=== PATIENT | male | born 1990 | race Caucasian/White ===

== ENCOUNTER 2018-12-31 07:21 | Inpatient (IN) | payer MEDICAID ==
[~2018-12-31] VITALS: Ht 165.1 cm; Wt 89.4 kg
--- NOTE | 2018-12-31 07:25 | NUR ---
TO ED 03 WITH STEADY GAIT.
[2018-12-31 07:29] VITALS: BP 151/92
--- NOTE | 2018-12-31 07:35 | NUR ---
PATIENT PRESENTS TO ED WITH C/O MANNY. BELOW CHEST PAIN X1 MONTH. PAIN LEVEL 8/10 CONSTANT, PT STATES HE WAS TX OF GERD A YEAR AGO AT [facility] WITH THE SAME SYMPTOMS. HX: ASTHMA . STATED NAUSEA AND SOB. VSS; PATIENT POSITIONED FOR COMFORT; HOB ELEVATED; BEDRAILS UP X2; BED DOWN. ER MD MADE AWARE OF PT STATUS.
--- NOTE | 2018-12-31 07:38 | NUR ---
Dr. Strange is evaluating the patient at bedside.
[2018-12-31] MEDS ORDERED: FAMOTIDINE 20 MG TAB PO ONE (07:45)
[2018-12-31] MEDS ORDERED: ONDANSETRON 4 MG ODT PO ONE (07:45)
[2018-12-31 08:23] LABS: ANION GAP 13.2 (8-16); BASOPHILS % (AUTO) 0.4 % (0.0-2.0); CARBON DIOXIDE 28.9 mmol/L (21-32); EOSINOPHILS # (AUTO) 0.1 K/uL (0-0.4); EOSINOPHILS % (AUTO) 0.9 % (0.0-4.0); HEMATOCRIT 45.8 % (36-52); HEMOGLOBIN 15.6 g/dL (12.0-18.0); LYMPHOCYTES % (AUTO) 11.2 % (20.5-51.1); MEAN CORPUSCULAR HEMOGLOBIN 30 pg (27-31); MEAN CORPUSCULAR HGB CONC 34 g/dL (33-37); MONOCYTES # (AUTO) 0.7 K/uL (0.8-1.0); MONOCYTES % (AUTO) 7.6 % (1.7-9.3); NEUTROPHILS # (AUTO) 7.4 K/uL (1.8-7.7); NEUTROPHILS % (AUTO) 79.9 % (42.2-75.2); PLATELET COUNT (AUTO) 285 K/uL (140-450); POTASSIUM 5.1 mmol/L (3.5-5.1); RED BLOOD CELL COUNT(AUTO) 5.21 MIL/uL (4.20-6.10); RED CELL DISTRIBUTION WIDTH 12.4 % (11.6-13.7); WHITE BLOOD COUNT (AUTO) 9.2 K/uL (4.8-10.8)
[2018-12-31 08:31] LABS: ALBUMIN 4.1 g/dL (3.4-5.0); TOTAL BILIRUBIN 6.3 mg/dL (0.0-1.0)
--- NOTE | 2018-12-31 08:50 | NUR ---
PT STILL C/O PAIN, NO RELEFE AFTER MEDICATED, ER MD MADE AWARE
[2018-12-31] MEDS ORDERED: MORPHINE SULFATE 4 MG/ML SYR IVP ONE (08:55)
[2018-12-31 08:58] LABS: APPEARANCE,URINE CLEAR (CLEAR); BILIRUBIN,URINE 1+ (NEGATIVE); BLOOD, URINE TRACE-I (NEGATIVE); COLOR,URINE YELLOW (YELLOW); LEUKOCYTE ESTERASE ,URINE NEGATIVE (NEGATIVE); NITRITE, URINE NEGATIVE (NEGATIVE); UGLUCOSE NEGATIVE (NEGATIVE)
--- NOTE | 2018-12-31 09:27 | NUR ---
IV INSERTED TO RIGHT AC 22GA BY STUDENT WITH INSTRUCTORS, PT TOLERATED WELL. IV MORPHINE GIVEN, WILL CLOSE MONITOR FOR SIDE EFFECTS AT THIS TIME.
--- NOTE | 2018-12-31 09:30 | NUR ---
PT STATED NO PAIN AT THIS TIME, VSS, NO S/S OF DISTRESS.
[2018-12-31 09:31] LABS: RBC,URINE 0-5 /HPF (0-5); WBC,URINE 0-5 /HPF (0-5)
[2018-12-31] MEDS ORDERED: DOCUSATE SODIUM 100 MG GELCAP PO PRN (09:45)
[2018-12-31] MEDS ORDERED: ACETAMINOPHEN 325 MG TAB PO PRN (09:45)
[2018-12-31] MEDS ORDERED: ONDANSETRON 4 MG/2 ML VIAL IM/IVP PRN (09:45)
--- NOTE | 2018-12-31 09:45 | NUR ---
Pt transferred to Med/Surg via WHEELCHAIR ROOM 105A, ALL BELONGINGS GOES WITH PATIENT, REPORT GIVEN TO JESUS AT BEDSIDE, PT IS IN STABLE CONDITION AT THIS TIME .
[2018-12-31 09:50] VITALS: BP 139/92
--- NOTE | 2018-12-31 09:55 | NUR ---
RECEIVED PT FROM ED NURSE UVALDO, PT IS AWAKE AND ALERT, AMBULATORY, ON ROOM AIR, SKIN INTACT. NO C/O PAIN AT THIS TIME. IV SITE R AC 22 G.
[2018-12-31 10:01] LABS: PROTHROMBIN TIME 9.3 secs (10.8-13.4)
[2018-12-31 10:03] LABS: BENZODIAZEPINE, URINE NEGATIVE ng/mL (NEG <=200); CANNABINOID, URINE NEGATIVE ng/mL (NEG <=50); COCAINE, URINE NEGATIVE ng/mL (NEG <=300); OPIATE, URINE NEGATIVE ng/mL (NEG <=2000); PHENCYCLIDINE SCREEN,URINE NEGATIVE ng/mL (NEG <=25)
[2018-12-31 10:05] LABS: MAGNESIUM 1.9 mg/dL (1.8-2.4); PHOSPHORUS 2.8 mg/dL (2.5-4.9)
[2018-12-31 10:06] LABS: THYROID STIMULATING HORMONE 1.54 uIU/mL (0.34-3.74)
--- NOTE | 2018-12-31 10:10 | NUR ---
VITAL SIGNS UPON ADMIT: BP 136/92, HR 77, O2 98%, TEMP 99.3, RR 20.
--- NOTE | 2018-12-31 10:34 | NUR ---
PT SEEN BY DR NEWTON
[2018-12-31] MEDS: NACL 0.9% 1,000 ML IV SCH ×2 (10:44→20:51)
[2018-12-31] MEDS: HYDROcodone/APAP 7.5/325 MG 1 TAB PO PRN ×3 (11:47→20:44)
--- NOTE | 2018-12-31 13:57 | NUR ---
PT VISITING WITH HIS MOM, NO S/S OF ACUTE DISTRESS.
--- NOTE | 2018-12-31 14:05 | NUR ---
PT SEEN BY DR DENNIS
--- NOTE | 2018-12-31 14:14 | NUR ---
CONSENT OBTAINED FOR CHOLECYSTECTOMY TOMORROW W/ DR DENNIS
[2018-12-31 16:00] VITALS: BP 136/80
--- NOTE | 2018-12-31 18:45 | NUR ---
PT SEEN BY DR ENRIQUEZ REGARDING DOING AN ERCP. CONSENT OBTAINED FOR ERCP FOR TOMORROW.
--- NOTE | 2018-12-31 19:20 | NUR ---
ENDORSED PT TO ELECTRICAL LINESWORKER NURSE IN STABLE CONDITION.
--- NOTE | 2018-12-31 19:30 | NUR ---
SEEN PT AWAKE, ALERT AND ORIENTED APPEARS COMFORTABLE IN BED. FAMILY AT BEDSIDE.
--- NOTE | 2018-12-31 20:30 | NUR ---
SEEN PT AWAKE, ALERT AND ORIENTED IN BED THEN SAT AT THE EDGE OF THE BED. INITIAL ASSESSMENT DONE. VITAL SIGN CHECKED. PT COMPLAINING OF EPIGASTRIC PAIN. WILL MEDICATE FOR PAIN ORDERED. PT SAID HIS LAST BM WAS SATURDAY AND HE DIDN'T EAT YESTERDAY. SAFETY ENSURED. CALL LIGHT W/IN REACH.
[2018-12-31 20:39] VITALS: BP 136/91
--- NOTE | 2018-12-31 22:50 | NUR ---
SEEN PT AWAKE, IN BED. VISITOR AT BEDSIDE. PT COMPLAINING OF EPIGASTRIC PAIN AND WANTS SOMETHING STRONGER. WILL NOTIFY MD. IVF INFUSING WELL.
--- NOTE | 2018-12-31 23:00 | NUR ---
INFORMED MD ABOUT PT'S PAIN LEVEL. HE SAID HE'LL ASSESS PATIENT AND SEE WHAT HE CAN ORDER FOR THE PAIN, MAYBE ULTRAM OR TRAMADOL BUT HE'LL CHECK THE CREATININE LEVEL FIRST. WILL TELL PATIENT.
[2018-12-31] MEDS ORDERED: KETOROLAC 30 MG/ML VIAL IVP PRN (23:45)
--- NOTE | 2018-12-31 23:45 | NUR ---
SEEN PT COMING OUT OF THE BATHROOM. ASKED IF MD CAME BY TO SEE HIM. HE SAID "NO". WILL REMIND MD.
--- NOTE | 2019-01-01 00:45 | NUR ---
SEEN PT AWAKE, ALERT AND ORIENTED. PT GIVEN PAIN MEDICATION AND SLEEPING PILL ORDERED. TEACHINGS PROVIDED. WILL REASSESS PAIN LEVEL.
[2019-01-01] MEDS: ZOLPIDEM 10 MG TAB PO PRN ×2 (00:50→22:02)
--- NOTE | 2019-01-01 02:00 | NUR ---
SEEN PT AWAKE. PT DENIES ANY DISCOMFORT. IVF INFUSING WELL. PT DENIES ANY PAIN.
--- NOTE | 2019-01-01 03:45 | NUR ---
SEEN PT JUST WOKE UP. VITAL SIGNS CHECKED. PT DENIES ANY PAIN AT THIS TIME. PT REMAINS NOTHING BY MOUTH PER ORDER.
[2019-01-01 04:00] VITALS: BP 95/47
--- NOTE | 2019-01-01 06:25 | NUR ---
SEEN PT AWAKE. PT DENIES ANY DISCOMFORT. IVF INFUSING WELL. PT REMAINS NOTHING BY MOUTH FOR ERCP TODAY.
--- NOTE | 2019-01-01 07:07 | NUR ---
WILL ENDORSE CARE TO DAYSHIFT NURSE.
[2019-01-01 07:17] LABS: BASOPHILS % (AUTO) 0.3 % (0.0-2.0); EOSINOPHILS # (AUTO) 0.2 K/uL (0-0.4); EOSINOPHILS % (AUTO) 2.8 % (0.0-4.0); HEMATOCRIT 40.6 % (36-52); HEMOGLOBIN 13.8 g/dL (12.0-18.0); LYMPHOCYTES # (AUTO) 1.3 K/uL (2.0-11.5); LYMPHOCYTES % (AUTO) 19.5 % (20.5-51.1); MEAN CORPUSCULAR HEMOGLOBIN 30 pg (27-31); MEAN CORPUSCULAR HGB CONC 34 g/dL (33-37); MEAN CORPUSCULAR VOLUME 88.9 fL (80-94); MONOCYTES # (AUTO) 0.9 K/uL (0.8-1.0); NEUTROPHILS # (AUTO) 4.2 K/uL (1.8-7.7); NEUTROPHILS % (AUTO) 63.4 % (42.2-75.2); PLATELET COUNT (AUTO) 237 K/uL (140-450); RED BLOOD CELL COUNT(AUTO) 4.57 MIL/uL (4.20-6.10); RED CELL DISTRIBUTION WIDTH 12.7 % (11.6-13.7); WHITE BLOOD COUNT (AUTO) 6.6 K/uL (4.8-10.8)
[2019-01-01 07:18] LABS: CHOL/HDL RATIO 4.1 (1-4.5)
[2019-01-01 07:27] LABS: ANION GAP 12.3 (8-16); CARBON DIOXIDE 26.9 mmol/L (21-32); MAGNESIUM 1.8 mg/dL (1.8-2.4); PHOSPHORUS 3.2 mg/dL (2.5-4.9); POTASSIUM 4.2 mmol/L (3.5-5.1); TOTAL BILIRUBIN 5.9 mg/dL (0.0-1.0)
[2019-01-01] MEDS: NACL 0.9% 1,000 ML IV SCH ×2 (07:37→15:45)
--- NOTE | 2019-01-01 08:15 | NUR ---
PATIENT HAS BEEN SCREENED AND CATEGORIZED MODERATE NUTRITION RISK. PATIENT WILL BE SEEN WITHIN 3-5 DAYS OF ADMISSION. 01/02/19 01/04/[address]
--- NOTE | 2019-01-01 09:30 | NUR ---
RECEIVED PT FROM NURSE MUSTAFA FOR CONTINUITY OF CARE
--- NOTE | 2019-01-01 10:15 | NUR ---
PT IS AMBULATING IN THE HALLWAY. NO S/S OF DISTRESS.
--- NOTE | 2019-01-01 10:35 | NUR ---
DC PLAN[age] YRS OLD MALE ADMITTED FROM HOME WITH A DX OF CHOLEDOCHOLITHIASIS . PT ALERT AND ORIENTED X 4 NO MEDICAL HISTORY. SURGICAL CONSULT , POSSIBLE LAB [facility] AND D/C PLAN TO GO HOME UPON DISCHARGE Addendum: 01/01/19 at 1619 by Judi Zavala CM DC PLAN PER DR DENNIS RECOMMENDED GI CONSULT FOR ERCP , DR ENRIQUEZ PERFORMED ERCP WAITING FOR READING AND POSSIBLE SURGERY LAP [facility] TOMORROW . CM TO FOLLOW Addendum: 01/02/19 at 1038 by Judi Zavala CM DC PLANNING S/P ERCP SPHINCTEROTOMY AND INSERTION OF COMMON BILE DUCT STENT, EXP LAPAROTOMY OPEN CHOLECYSTECTOMY DONE BY DR DENNIS. DC PLAN TO GO HOME AFTER RECOVERY 1-2 DAYS, CM TO FOLLOW UP
[2019-01-01] MEDS: HYDROcodone/APAP 7.5/325 MG 1 TAB PO PRN ×2 (10:45→19:37)
--- NOTE | 2019-01-01 15:01 | NUR ---
Steeplechase Jockey Assessment/Discharge Plan: Name: Tresa Ugalde Home Relationship: mother Pre-Admission Living Arrangements: Lives with Other Other: Tresa Ugalde Prior ADL Independent Current Home Health Name/Tel: N/A Current DME/02 Name/Tel: N/A Current Hospice Name/Tel: N/A Current Dialysis Name/Tel: N/A Healthcare Decision Maker: Patient Information Taught: Community Resources Person Taught: Patient Teaching Tools: Community Resources Verbal Factors Affecting Learning: None Participation Level: Active Evaluation: Gestures Understanding Verbalizes Understanding Educator: SRIDHAR Bowen Discipline: Case Mgt/Social Svcs Tentative Discharge Plan Summary: Patient is a 28 year old male admitted for malecholedocholithiasis. I met with patient at bedside. Patient alert and oriented x4. Patient lives at home with his mother Tresa Ugalde and plans to return home upon discharge. Patient does not have a pcp at this time. I emphasized to him the importance of following up with a physician regularly and post discharge. He verbalized understanding. I provided him with a list of low cost clinics. Patient is independent with ADLs and does not use any DME at home. Patient stated he has hx of alcohol abuse. He denied current alcohol abuse. He also denied substance abuse. He denied hx of mental health. Steeplechase Jockey and/or Wire Wrapper Machine Operator will follow up as needed. Signature: SRIDHAR Bowen Date: Jan 01, 2019
[2019-01-01] MEDS ORDERED: PROPOFOL 200 MG/20 ML VIAL IV ONE (15:20)
--- NOTE | 2019-01-01 15:21 | NUR ---
PT TAKEN OFF UNIT FOR ERCP AT THIS TIME.
[2019-01-01] MEDS ORDERED: fentaNYL 0.05 MG/ML VIAL ONE (15:23)
[2019-01-01] MEDS ORDERED: MIDAZOLAM 2 MG/2 ML VIAL ONE (15:23)
[2019-01-01] MEDS ORDERED: MEPERIDINE 25 MG/ML SYR IVP PRN (16:25)
[2019-01-01] MEDS ORDERED: HYDROmorphone 1 MG/ML AMP IVP PRN (16:25)
[2019-01-01] MEDS ORDERED: diphenhydrAMINE 50 MG/ML VIAL IVP PRN (16:25)
[2019-01-01] MEDS ORDERED: LACTATED RINGERS 1,000 ML IV SCH (16:25)
[2019-01-01] MEDS ORDERED: ONDANSETRON 4 MG/2 ML VIAL IVP PRN (16:25)
--- NOTE | 2019-01-01 17:08 | NUR ---
PT BACK FROM ERCP. AWAKE AND ALERT, SAYS NO PAIN AT THIS TIME. VS STABLE BP 138/86, H6 72, O2 96%, TEMP 99.0, RR 18.
[2019-01-01 17:10] VITALS: BP 138/86
--- NOTE | 2019-01-01 17:16 | NUR ---
CALLED DR DENNIS TO LET HIM KNOW ABOUT PT'S ERCP. HE TORB CBC AND CMP IN THE MORNING, AND NPO AFTER MIDNIGHT TONIGHT. I OBTAINED PT'S CONSENT FOR POSSIBLE BLOOD TRANSFUSION FOR CHOLECYSTECTOMY TOMORROW.
--- NOTE | 2019-01-01 19:25 | NUR ---
ENDORSED PT TO FORTUNE TELLER NURSE IN STABLE CONDITION.
--- NOTE | 2019-01-01 19:26 | NUR ---
RECEIVED PT ON BED, AAOX4, ABLE TO MAKE NEEDS KNOWN, COMPLAINING OF ABDOMINAL PAIN, DENIES N/V, WILL MEDICATE PRN, IVF INFUSING WELL, PLAN OF CARE DISCUSSED, AWARE OF NPO AFTER MIDNIGHT FOR LAP CHOLECYSTECTOMY FOR TOMORROW, SAFETY MEASURES IN PLACE, CALL LIGHT WITHIN REACH.
--- NOTE | 2019-01-01 21:00 | NUR ---
DUE ROCEPHIN IVPB ADMINISTERED, PT AMBULATED TO BR WITH STEADY GAIT, VOIDED FREELY, ALL NEEDS ATTENDED.
--- NOTE | 2019-01-01 23:40 | NUR ---
PT SLEEPING, EASILY AROUSABLE, VITAL SIGNS STABLE, DENIES ANY PAIN, NPO AFTER MIDNIGHT, IVF INFUSING WELL, CONTINUE TO MONITOR CLOSELY.
[2019-01-02] VITALS: BP 108/61
[2019-01-02] MEDS: NACL 0.9% 1,000 ML IV SCH ×3 (02:07→23:07)
--- NOTE | 2019-01-02 03:45 | NUR ---
ROUNDS MADE, SEEN SLEEPING, VISIBLE CHEST RISE AND FALL, NO DISTRESS NOTED, MONITORED CLOSELY.
--- NOTE | 2019-01-02 05:30 | NUR ---
PT SLEEPING, EASILY AROUSABLE, DENIES ANY PAIN, VITAL SIGNS STABLE, CHG WIPES PROVIDED, MAINTAINED ON NPO, IVF INFUSING WELL, MONITORED CLOSELY.
[2019-01-02 06:58] LABS: BASOPHILS % (AUTO) 0.4 % (0.0-2.0); EOSINOPHILS # (AUTO) 0.1 K/uL (0-0.4); EOSINOPHILS % (AUTO) 2.2 % (0.0-4.0); HEMATOCRIT 39.7 % (36-52); HEMOGLOBIN 13.2 g/dL (12.0-18.0); LYMPHOCYTES # (AUTO) 1.2 K/uL (2.0-11.5); LYMPHOCYTES % (AUTO) 18.6 % (20.5-51.1); MEAN CORPUSCULAR HEMOGLOBIN 30 pg (27-31); MEAN CORPUSCULAR HGB CONC 33 g/dL (33-37); MEAN CORPUSCULAR VOLUME 89.8 fL (80-94); MONOCYTES # (AUTO) 0.7 K/uL (0.8-1.0); MONOCYTES % (AUTO) 10.5 % (1.7-9.3); NEUTROPHILS # (AUTO) 4.4 K/uL (1.8-7.7); NEUTROPHILS % (AUTO) 68.3 % (42.2-75.2); PLATELET COUNT (AUTO) 221 K/uL (140-450); RED BLOOD CELL COUNT(AUTO) 4.43 MIL/uL (4.20-6.10); RED CELL DISTRIBUTION WIDTH 12.6 % (11.6-13.7); WHITE BLOOD COUNT (AUTO) 6.4 K/uL (4.8-10.8)
--- NOTE | 2019-01-02 07:15 | NUR ---
RECEIVED SBAR REPORT FROM INSTITUTIONAL CUSTODIAN NURSE. PT TAKEN TO OR DEPARTMENT.
--- NOTE | 2019-01-02 07:15 | NUR ---
PT BEING TAKEN TO OR IN STABLE CONDITION, REPORT GIVEN TO BRITTANY WOODALL FOR CONTINUITY OF CARE.
[2019-01-02] MEDS ORDERED: ROCURONIUM 50 MG/5 ML VIAL IV ONE (07:28)
[2019-01-02] MEDS ORDERED: PHENYLEPHRINE 10 MG/ML VIAL IV ONE (07:28)
[2019-01-02] MEDS ORDERED: ONDANSETRON 4 MG/2 ML VIAL IVP ONE (07:28)
[2019-01-02] MEDS ORDERED: PROPOFOL 200 MG/20 ML VIAL IV ONE (07:28)
[2019-01-02] MEDS ORDERED: DESFLURANE 240 ML BTL INH ONE (07:28)
[2019-01-02] MEDS ORDERED: KETOROLAC 30 MG/ML VIAL IVP ONE (07:28)
[2019-01-02] MEDS ORDERED: GLYCOPYRROLATE 0.2 MG/ML VIAL IV ONE (07:28)
[2019-01-02] MEDS ORDERED: SUCCINYLCHOLINE CHLORIDE 200 MG/10 ML VIAL IV ONE (07:28)
[2019-01-02] MEDS ORDERED: HYDROmorphone PFS 2 MG/ML SYR ONE ×3 (07:32→10:36)
[2019-01-02] MEDS ORDERED: fentaNYL 0.05 MG/ML VIAL ONE (07:32)
[2019-01-02 07:43] LABS: ALBUMIN 3.1 g/dL (3.4-5.0); ANION GAP 14.7 (8-16); CARBON DIOXIDE 25.3 mmol/L (21-32); CREATININE 0.9 mg/dL (0.7-1.3); MAGNESIUM 1.9 mg/dL (1.8-2.4); PHOSPHORUS 3.1 mg/dL (2.5-4.9); TOTAL BILIRUBIN 5.4 mg/dL (0.0-1.0)
[2019-01-02] MEDS ORDERED: ONDANSETRON 4 MG/2 ML VIAL IVP PRN (07:50)
[2019-01-02] MEDS: BUPIVACAINE-MPF/EPI 0.25% 30 ML VIAL INJ ONE ×2 (08:04→10:34)
[2019-01-02] MEDS: HYDROmorphone 1 MG/ML AMP IVP PRN ×3 (10:38→10:58)
[2019-01-02 11:05] VITALS: BP 128/84
--- NOTE | 2019-01-02 11:05 | NUR ---
RECEIVED REPORT FROM OR NURSE. AAOX4, PT STATES "TOLERABLE" WHEN ASKED REGARDING PAIN. IV ON RT AC 22 GA RUNNING IVF PER ORDER. RESPIRATIONS EVEN AND UNLABORED ON RA, O2 SAT 93%. ABD SOFT, ACTIVE BS. NOTED 5 ABDOMINAL INCISIONS, DRESSINGS CLEAN, DRY AND INTACT, DRESSING CHANGED AFTER 24 HOURS, JADE DRAIN NOTED WITH SANGUINEOUS DRAINAGE. SAFETY MEASURES IN PLACE, CALL LIGHT WITHIN REACH. REVIEWED POC WITH PT, PT VERBALIZED UNDERSTANDING.
[2019-01-02] MEDS: LACTOBACILLUS RHAMNOSUS GG 1 EACH CAP PO SCH (11:34)
--- NOTE | 2019-01-02 13:00 | NUR ---
EDUCATED PT REGARDING THE USE OF INCENTIVE SPIROMETER, RETURN DEMONSTRATION GIVEN. WILL CONTINUE TO MONITOR.
[2019-01-02] MEDS: MORPHINE SULFATE 2 MG/ML SYR IVP PRN ×2 (15:09→23:15)
--- NOTE | 2019-01-02 15:20 | NUR ---
PT SITTING UP IN BED, PT HAS NO SIGNS OF DISTRESS AT THIS TIME. RESPIRATIONS EVEN AND UNLABORED ON RA.
[2019-01-02 16:00] VITALS: BP 124/72
[2019-01-02] MEDS: HYDROcodone/APAP 7.5/325 MG 1 TAB PO PRN ×2 (16:21→20:28)
--- NOTE | 2019-01-02 16:21 | NUR ---
ADMINISTERED NORCO FOR LEVEL 6/10 ABD PAIN, WILL REASSESS WITHIN 1 HOUR.
[2019-01-02] MEDS: KETOROLAC 30 MG/ML VIAL IVP PRN (18:41)
--- NOTE | 2019-01-02 18:41 | NUR ---
ADMINISTERED PAIN MEDICATION PER ORDER FOR LEVEL 8/10 ABD PAIN. WILL REASSESS WITHIN 1 HOUR.
--- NOTE | 2019-01-02 19:43 | NUR ---
ENDORSED PT TO BESSEMER CONVERTER OPERATOR NURSE. PT HAS NO SIGNS OF DISTRESS AT THIS TIME.
--- NOTE | 2019-01-02 19:45 | NUR ---
RECEIVED REPORT FORM JOSE C SOTO DAYSHIFT NURSE AT BEDSIDE FOR CONTINUITY OF CARE, PT IN STABLE CONDITION.
--- NOTE | 2019-01-02 20:30 | NUR ---
PT SITTING UP IN BED , HE IS AOX4 WITH C/O OF MODERATE PAIN IN ABDOMEN. DRESSINGS INTACT MODERATE SEROSANGUINEOUS DRAINAGE,. JADE DRAIN INTACT NO DRAINAGE NOTED IN JADE DRAIN. PT GIVEN 1 TAB OF NORCO FOR 6/10 PAIN, WELL ORDERED ROCEPHIN HUNG AND RUNNING AT 100MLS/HR. IV SITE INTACT AND FLUSHED PATENT. WILL CONTINUE TO MONITOR FOR PAIN RELIEF, BED LOW AND CALL WALKER N REACH.
--- NOTE | 2019-01-02 23:34 | NUR ---
FLUID BAG OF NORMAL SALINE REPLACE AND IS RUNNING N/S AT 100MLS/HR ORDERED. PT DRESSINGS INTACT SMALL AMOUNT OF BLOOD DRAINED N TO JADE DRAIN. DRESSING ON MID LOWER ABDOMEN REINFORCED TO PREVENT LEAKING. PT C/O 09/03 PAIN SEVERE PAIN, PT GIVEN MORPHINE IVP/PRN FOR PAIN. WILL MONITOR FOR PAIN RELIEF. BED LOW AND CALL WALKER IN REACH.
[2019-01-03] VITALS: BP 110/74
--- NOTE | 2019-01-03 00:30 | NUR ---
PT IN BED, PT STATES THAT MORPHINE HELPED RELIEVE HIS PAIN IV SITE INTACT AND RUNNING N/S ORDERED V/S FOLLOWS : T 98.0 P 73 R 18 B/P 110/74 02 96% ON ROOM AIR. BED LOW AND CALL WALKER IN REACH. ABDOMINAL DRESSINGS REENFORCED DUE TO SOME MODERATE DRAINAGE. JADE DRAIN INTACT WITH SMALL AMOUNT OF BLOOD. BED LOW AND CALL WALKER IN REACH.
[2019-01-03] MEDS: ZOLPIDEM 10 MG TAB PO PRN ×2 (01:56→22:01)
[2019-01-03] MEDS: KETOROLAC 30 MG/ML VIAL IVP PRN ×3 (02:04→18:07)
--- NOTE | 2019-01-03 02:05 | NUR ---
PT AGAIN C/O OF SEVERE PAIN IN ABDOMEN 09/03, PT GIVEN IVP TORADOL WELL REQUESTED AMBIEN TO HELP HIM SLEEP. WILL MONITOR FOR PAIN REIELF AND SLEEPING. BED LOW CALL WALKER IN REACH AND ALL REQUESTED NEEDS ATTENDED BY STAFF.
--- NOTE | 2019-01-03 03:30 | NUR ---
PT SLEEPING SOUNDLY IN BED.
--- NOTE | 2019-01-03 04:30 | NUR ---
PT HAS 25MLS OF CHARLENE BLOOD OUT OF JADE DRAIN. PT HAS NO C/O OF PAIN VOICED AT THIS TIME. CALL WALKER IN REACH. IV SITE INTACT AND RUNNING N/S AT 100MLS/HR.
[2019-01-03 06:51] LABS: BASOPHILS % (AUTO) 0.2 % (0.0-2.0); EOSINOPHILS % (AUTO) 0.5 % (0.0-4.0); HEMATOCRIT 34.8 % (36-52); HEMOGLOBIN 11.7 g/dL (12.0-18.0); LYMPHOCYTES # (AUTO) 1.2 K/uL (2.0-11.5); LYMPHOCYTES % (AUTO) 12.9 % (20.5-51.1); MEAN CORPUSCULAR HEMOGLOBIN 30 pg (27-31); MEAN CORPUSCULAR HGB CONC 34 g/dL (33-37); MEAN CORPUSCULAR VOLUME 89.3 fL (80-94); MONOCYTES # (AUTO) 1.1 K/uL (0.8-1.0); MONOCYTES % (AUTO) 11.9 % (1.7-9.3); NEUTROPHILS # (AUTO) 6.8 K/uL (1.8-7.7); NEUTROPHILS % (AUTO) 74.5 % (42.2-75.2); PLATELET COUNT (AUTO) 212 K/uL (140-450); RED CELL DISTRIBUTION WIDTH 12.9 % (11.6-13.7); WHITE BLOOD COUNT (AUTO) 9.2 K/uL (4.8-10.8)
[2019-01-03 06:58] LABS: ALBUMIN 2.6 g/dL (3.4-5.0); ANION GAP 9.6 (8-16); CARBON DIOXIDE 29.6 mmol/L (21-32); CREATININE 0.9 mg/dL (0.7-1.3); POTASSIUM 4.2 mmol/L (3.5-5.1); TOTAL BILIRUBIN 3.4 mg/dL (0.0-1.0)
--- NOTE | 2019-01-03 07:05 | NUR ---
RECEIVED PT FROM CHILDRENS CLUB ATTENDANT NURSE, PT IS AWAKE AND LYING ON THE BED WITH SIDE RAILS UP AND CALL LIGHT WITHIN REACH, PT IS S/P OPEN CHOLECYSTECTOMY AND CHOLANGIOGRAM, 18CM LENGTH SURGICAL INCISION AND ANDREW INTACT ON THE ABDOMINAL AREA, REINFORCED WITH DRESSING DISCHARGE NOTED, IV LINE ON THE RT AC G. 22 WITH NS INFUSING AT 100ML/HR, PT DENIES PAIN AND NO SIGN OF DISTRESS NOTED. WILL MONITOR PT.
[2019-01-03 08:00] VITALS: BP 123/76
[2019-01-03] MEDS: LACTOBACILLUS RHAMNOSUS GG 1 EACH CAP PO SCH (08:33)
[2019-01-03] MEDS: NACL 0.9% 1,000 ML IV SCH (08:33)
--- NOTE | 2019-01-03 08:33 | NUR ---
PT IS AWAKE, SEATED ON THE BED, ORAL AND IVPB MEDICATIONS WERE GIVEN AND TOLERATED IT, WILL CONTINUE TO MONITOR PT.
[2019-01-03] MEDS: HYDROcodone/APAP 7.5/325 MG 1 TAB PO PRN ×2 (08:39→15:36)
--- NOTE | 2019-01-03 08:39 | NUR ---
PT C/O OF A PAIN RATE OF 6/10, ORAL PAIN MEDICATIONS WAS GIVEN, PARAMETER CHECKED AND TOLERATED IT. WILL RE-ASSESS PAIN AND MONITOR PT
--- NOTE | 2019-01-03 11:15 | NUR ---
DR. DENNIS REMOVED THE DRESSING OF THE PT AND REINFORCED IT WITH GAUZE AND BETADINE.
[2019-01-03] MEDS: POTASSIUM CHL 20 MEQ / DEXT 5% 1,000 ML IV SCH (12:27)
--- NOTE | 2019-01-03 12:27 | NUR ---
PT WAS STARTED WITH IVF DEXTROSE 5%-KCL 20MEQ AT A RATE OF 20ML/HR.
--- NOTE | 2019-01-03 12:36 | NUR ---
01/03/19 RD INITIAL ASSESSMENT COMPLETED PLEASE REFER TO NUTRITION ASSESSMENT UNDER CARE ACTIVITY FOR ESTIMATED NUTRITIONAL NEEDS. RD RECOMMENDATIONS: 1. CONTINUE CLEAR LIQUID DIET TOLERATED. 2. CONSIDER LOW FAT WHEN MEDICALLY APPROPRIATE. 3. LOW FAT DIET EDUCATION WAS PROVIDED TO PT S/P SALOMON RESENDIZ. 4. RD WILL F/U 2-3 DAYS; HIGH RISK. MELVI LUDWIG, RD
--- NOTE | 2019-01-03 15:36 | NUR ---
PT C/O PAIN RATE OF 6/10 AND NORCO WAS GIVEN, WILL RE-ASSESS APAIN AND MONITOR PT.
[2019-01-03 16:00] VITALS: BP 135/85
--- NOTE | 2019-01-03 18:07 | NUR ---
PT WAS GIVEN PAIN MEDICATION NOW.
--- NOTE | 2019-01-03 19:05 | NUR ---
ENDORSED PT TO VICE CHAIR NURSE FOR CONTINUITY OF CARE.
--- NOTE | 2019-01-03 19:05 | NUR ---
RECEIVED ENDORSEMENT FORM PITER SOTO DAYSHIFT NURSE AT BEDSIDE FOR CONTINUITY OF CARE, PT IN STABLE CONDITION.
--- NOTE | 2019-01-03 20:00 | NUR ---
PT SITTING UP IN BED, HE IS AOX4, IV SITE 22G ON RAC INTACT AND ASYMPTOMATIC RUNNING D5 AND POTASSIUM ORDERED AT 20MLS/HR. DRESSINGS CLEAN AND INTACT EXCEPT FOR DRESSING ON LOWER ABDOMEN WHICH HAS MODERATE BLOODY DRAINAGE. WILL CHANGE DRESSING SITE LATER. V/S FOLLOWS T 97.7 P 90 R 18 B/P 113/58 02 95% ON ROOM AIR. PT DENIES PAIN ED LOW AND CALL WALKER IN REACH.
--- NOTE | 2019-01-03 21:00 | NUR ---
PINEDA CLINTON AND IS RUNNING AT 100MLS/HR ORDERED. NO S/S OF ADVERSE EFFECTS NOTED, BED LOW SIDE RAILS UP AND CALL WALKER IN REACH.
--- NOTE | 2019-01-03 22:10 | NUR ---
PT SAID THAT HE HASN'T HAD A BM YET, HE WAS GIVEN COLACE FOR CONSTIPATION AND REQUESTED AMBIEN FOR SLEEPLESSNESS. DRESSING ON LOWER ABDOMEN CHANGED, AREA CLEANED WITH NORMAL SALINE PAT DRY AND BETADINE PUT OVER ANDREW WHICH ARE INTACT, NEW DRY DRESSINGS APPLIED. ALL OTHER REQUESTED NEEDS ATTENDED BY STAFF. PT DENIES ANY PAIN AT THIS TIME. WILL CONTINUE TO MONITOR FOR BLEEDING AND PAIN CONTROL WELL EFFECTS OF PRN MEDICATION.
[2019-01-04] VITALS: BP 116/68
[2019-01-04] MEDS: HYDROcodone/APAP 7.5/325 MG 1 TAB PO PRN ×2 (00:56→13:19)
--- NOTE | 2019-01-04 01:00 | NUR ---
PT IN BED DRESSINGS INTACT WITH VERY MINIMAL SANGUINOUS DRAINAGE OF JADE DRAIN. LOWER ABDOMINAL DRESSING NOTED WITH MODERATE DRAINAGE AND WAS CHANGED AND REDRESSED. PT GIVEN 1 TAB OF NORCO FOR MODERATE PAIN. V/S FOLLOWS T 97.6 P 88 R 18 B/P 116/68 02 95% ON ROOM AIR. ALL REQUESTED NEEDS ATTENDED BY STAFF AND CALL WALKER IN REACH.
[2019-01-04] MEDS: KETOROLAC 30 MG/ML VIAL IVP PRN (05:18)
--- NOTE | 2019-01-04 05:29 | NUR ---
PT C/O 09/03 PAIN GIVEN IVP/PRN TORADOL, DRESSING AGAIN CHANGED DUE TO BEING SOILED JADE DRAIN HAS 5MLS DRAINAGE OF SEROSANGUINEOUS DRAINAGE. IV SITE INTACT AND RUNNING D5 WITH POTASSIUM. ALL REQUESTED NEEDS ATTENDED AND CALL WALKER IN REACH.
--- NOTE | 2019-01-04 07:15 | NUR ---
RECEIVED PT FROM SIZE MAKER NURSE. PT IS ASLEEP ON THE BED. VISIBLE CHEST RISE, RESPIRATIONS EVEN, SIDE RAILS ARE UP. CALL LIGHT WITHIN REACH. PERIPHERAL IV RIGHT AC, 22G WITH DEXTROSE 5% KCL 20 MEQ FLUID, INFUSING 20ML/HR. NO SIGN OF DISTRESS NOTED. WILL CONTINUE TO MONITOR.
[2019-01-04 07:32] LABS: MAGNESIUM 1.8 mg/dL (1.8-2.4); PHOSPHORUS 3.1 mg/dL (2.5-4.9)
[2019-01-04 07:36] LABS: ALBUMIN 2.7 g/dL (3.4-5.0); ANION GAP 14.1 (8-16); CARBON DIOXIDE 26.4 mmol/L (21-32); CREATININE 0.7 mg/dL (0.7-1.3); POTASSIUM 3.5 mmol/L (3.5-5.1)
[2019-01-04 08:09] LABS: BASOPHILS % (AUTO) 0.4 % (0.0-2.0); EOSINOPHILS # (AUTO) 0.2 K/uL (0-0.4); EOSINOPHILS % (AUTO) 2.1 % (0.0-4.0); HEMATOCRIT 34.7 % (36-52); HEMOGLOBIN 11.6 g/dL (12.0-18.0); LYMPHOCYTES # (AUTO) 1.2 K/uL (2.0-11.5); LYMPHOCYTES % (AUTO) 15.1 % (20.5-51.1); MEAN CORPUSCULAR HEMOGLOBIN 30 pg (27-31); MEAN CORPUSCULAR HGB CONC 33 g/dL (33-37); MEAN CORPUSCULAR VOLUME 89.7 fL (80-94); MONOCYTES # (AUTO) 0.8 K/uL (0.8-1.0); MONOCYTES % (AUTO) 9.1 % (1.7-9.3); NEUTROPHILS # (AUTO) 6.1 K/uL (1.8-7.7); NEUTROPHILS % (AUTO) 73.3 % (42.2-75.2); PLATELET COUNT (AUTO) 227 K/uL (140-450); RED BLOOD CELL COUNT(AUTO) 3.87 MIL/uL (4.20-6.10); RED CELL DISTRIBUTION WIDTH 13.3 % (11.6-13.7); WHITE BLOOD COUNT (AUTO) 8.3 K/uL (4.8-10.8)
[2019-01-04] MEDS: LACTOBACILLUS RHAMNOSUS GG 1 EACH CAP PO SCH (08:14)
--- NOTE | 2019-01-04 08:14 | NUR ---
PT. IS AWAKE, EATING BREAKFAST. IV ROCEPHIN AND LACTOBACILLUS GIVEN. MEDICATION EDUCATION PURPOSE AND SIDE EFFECTS. PT. VERBALIZES UNDERSTANDING. WILL CONTINUE TO MONITOR
--- NOTE | 2019-01-04 10:15 | NUR ---
PT IS AWAKE AND SITTING ON BED. AOX4. DENIES PAIN. BED IN LOW POSITION. CALL LIGHT WITHIN REACH. INSTRUCTED TO UTILIZE CALL LIGHT FOR ANY ASSISTANCE.
[2019-01-04] MEDS: POTASSIUM CHL 20 MEQ / DEXT 5% 1,000 ML IV SCH (11:25)
--- NOTE | 2019-01-04 13:00 | NUR ---
WOUND ASSESSMENT AND DRESSING CHANGE DONE ON PT. MINIMAL DRAINAGE NOTED ON THE INCISION IN THE UMBILICUS. WILL CONTINUE TO MONITOR.
--- NOTE | 2019-01-04 13:20 | NUR ---
ADMINISTRATION OF NORCO FOR PAIN. 08/04 THROBBING PAIN IN THE ABDOMEN AREA. EDUCATED ON PURPOSE AND SIDE EFFECTS. PT. VERBALIZED UNDERSTANDING. BED IN LOW POSITION. CALL LIGHT WITHIN REACH.
[2019-01-04 14:25] VITALS: BP 122/76
--- NOTE | 2019-01-04 18:30 | NUR ---
JADE DRAIN WAS REMOVED BY DR. DENNIS, REINFORCED WITH DRESSING.
[2019-01-04] MEDS ORDERED: LIDOCAINE/EPI 1% 1:100000 20 ML VIAL INJ ONE (18:50)
[2019-01-04] MEDS ORDERED: LIDOCAINE/EPI 1% 1:100000 20 ML VIAL INJ SCH (19:00)
--- NOTE | 2019-01-04 19:20 | NUR ---
PT IN STABLE CONDITION. PT IS ENDORSED TO PM SHIFT RN FOR CONTINUITY OF CARE
--- NOTE | 2019-01-04 20:00 | NUR ---
PT IN BED AOX4 WOUND DRESSINGS DRY AND INTACT. UPPER SURGICAL WOUND HAS ANDREW INTACT AND OPEN TO AIR. JADE WAS REMOVED DRESSING DRY AND INTACT. V/S FOLLOWS T 98.4 P 83 R 18 B/P 121/76 02 97% ON ROOM AIR. IV SITE ON LEFT F/A INTACT AND RUNNING D5WITH POTASSIUM AT 20MLS/HR. FAMILY AT BEDSIDE, ALL REQUESTED NEEDS ATTENDED AND CALL WALKER IN REACH.
[2019-01-04] MEDS: MORPHINE SULFATE 2 MG/ML SYR IVP PRN (20:24)
--- NOTE | 2019-01-04 20:30 | NUR ---
IV ABT ROCEPHIN HUNG AND RUNNING AT 100MLS/HR ORDERED. IV SITE INTACT AND FLUSHED PATENT. PT REQUESTED PAIN MEDICATION FOR 7/10 PAIN IN ABDOMEN. PT GIVEN IVP TORADOL A REQUESTED. EXPLAINED TO PT THAT HE WILL BE UNDERGOING PROCEDURE AT BEDSIDE WITH THE SURGEON TO CAUTERIZE SURGICAL WOUND THAT HAS BEEN LEAKING BLOOD. PT VERBALIZED CONSENT. FAMILY LEFT BEDSIDE.
--- NOTE | 2019-01-04 21:00 | NUR ---
SURGEON DR. DENNIS HERE TO CAUTERIZE SURGICAL WOUND. MD DENNIS INFORMED THAT IF THERE WAS A CONSENT TO BE SIGNED, THAT PT HAD NOT DONE SO , ONLY GAVE VERBAL CONSENT. PER MD DENNIS THERE IS NO CONSENT THAT NEEDS TO BE SIGNED. DR DENNIS PERFORMED THE PROCEDURE AT BEDSIDE, USING LOCAL LIDOCANE ANESTHETIC, THEN AREA WAS RE-STAPLED AGAIN. DRY DRESSING PLACED OVER THE SURGICAL WOUND. WILL MONITOR FOR BLEEDING AND PAIN.
--- NOTE | 2019-01-04 22:30 | NUR ---
ROUNDS DONE, PT RESTING IN BED, NO S/S OF PAIN OR DISTRESS NOTED.
[2019-01-05] VITALS: BP 113/70
--- NOTE | 2019-01-05 | NUR ---
PT LYING DOWN IN BED DRESSINGS INTACT AND WOUND CARE PROVIDED. LOWER ABDOMINAL WOUND REMAINED DRY AND INTACT EDUCATION REGARDING WOUND CARE PROVIDED. V/S FOLLOWS T 98.1 P 80 R 16 B/P 113/70 02 94% ON ROOM AIR. ALL REQUESTED NEEDS ATTENDED BY STAFF AND CALL WALKER IN REACH.
[2019-01-05] MEDS: KETOROLAC 30 MG/ML VIAL IVP PRN (00:42)
[2019-01-05] MEDS: ZOLPIDEM 10 MG TAB PO PRN (00:43)
--- NOTE | 2019-01-05 01:00 | NUR ---
PT REQUESTED AND WAS GIVEN TORADOL FOR SEVERE 7/10 PAIN. ALL REQUESTED NEEDS ATTENDED BY STAFF AND CALL WALKER IN REACH.DRESSINGS DRY AND INTACT.
--- NOTE | 2019-01-05 05:08 | NUR ---
PT IN BED SLEEPING SOUNDLY IN BED NO S/S OF PAIN OR DISTRESS, D5 WITH POTASSIUM RUNNING ORDERED. IV SITE INTACT BED LOW SIDE RAILS UP AND CALL WALKER IN REACH.
[2019-01-05 05:39] LABS: BASOPHILS % (AUTO) 0.5 % (0.0-2.0); EOSINOPHILS # (AUTO) 0.3 K/uL (0-0.4); EOSINOPHILS % (AUTO) 4.4 % (0.0-4.0); HEMOGLOBIN 11.3 g/dL (12.0-18.0); LYMPHOCYTES # (AUTO) 1.8 K/uL (2.0-11.5); MEAN CORPUSCULAR HEMOGLOBIN 30 pg (27-31); MEAN CORPUSCULAR HGB CONC 33 g/dL (33-37); MEAN CORPUSCULAR VOLUME 89.9 fL (80-94); MONOCYTES # (AUTO) 0.7 K/uL (0.8-1.0); MONOCYTES % (AUTO) 9.4 % (1.7-9.3); NEUTROPHILS # (AUTO) 4.9 K/uL (1.8-7.7); NEUTROPHILS % (AUTO) 62.7 % (42.2-75.2); PLATELET COUNT (AUTO) 239 K/uL (140-450); RED BLOOD CELL COUNT(AUTO) 3.78 MIL/uL (4.20-6.10); WHITE BLOOD COUNT (AUTO) 7.8 K/uL (4.8-10.8)
[2019-01-05 06:09] LABS: ANION GAP 11.5 (8-16); CARBON DIOXIDE 28.1 mmol/L (21-32); CREATININE 0.8 mg/dL (0.7-1.3); POTASSIUM 3.6 mmol/L (3.5-5.1)
[2019-01-05 06:11] LABS: MAGNESIUM 1.9 mg/dL (1.8-2.4); PHOSPHORUS 4.6 mg/dL (2.5-4.9)
--- NOTE | 2019-01-05 07:37 | NUR ---
RECEIVED BEDSIDE REPORT FROM PM RN PT AWAKE IN BED PT APPEARS STABLE AND IN NO APPARENT DISTRESS. ALL SAFETY MEASURES ARE IN PLACE. WILL CONTINUE TO MONITOR
[2019-01-05 08:15] VITALS: BP 123/75
[2019-01-05] MEDS: LACTOBACILLUS RHAMNOSUS GG 1 EACH CAP PO SCH (08:56)
[2019-01-05] MEDS ORDERED: HYDR-5122 PO (09:10)
[2019-01-05 09:36] VITALS: BP 123/75
[2019-01-05] MEDS: HYDROcodone/APAP 7.5/325 MG 1 TAB PO PRN (09:59)
== END 2019-01-05 10:45 | disposition home or self-care (01) | DRG 263 ==
LOC: MED 07:21 → MTU 09:09
PROVIDERS: ADMIT General Practice; ATTEND General Practice
PROC: 0FC98ZZ Extirpation of Matter from Common Bile Duct, Via Natural or Artificial Opening Endoscopic (ICD-10-PCS; 2019-01-01)
PROC: 0F798DZ Dilation of Common Bile Duct with Intraluminal Device, Via Natural or Artificial Opening Endoscopic (ICD-10-PCS; 2019-01-01)
PROC: BF101ZZ Fluoroscopy of Bile Ducts using Low Osmolar Contrast (ICD-10-PCS; 2019-01-01)
PROC: 0FT40ZZ Resection of Gallbladder, Open Approach (ICD-10-PCS; 2019-01-02)
PROC: 0FJ44ZZ Inspection of Gallbladder, Percutaneous Endoscopic Approach (ICD-10-PCS; 2019-01-02)
PROC: BF101ZZ Fluoroscopy of Bile Ducts using Low Osmolar Contrast (ICD-10-PCS; principal; 2019-01-02 07:30)
DX: K80.62 Calculus of gallbladder and bile duct with acute cholecystitis without obstruction (principal); E43 Unspecified severe protein-calorie malnutrition; K83.09 Other cholangitis; K65.9 Peritonitis, unspecified; K70.9 Alcoholic liver disease, unspecified; E66.9 Obesity, unspecified; Z68.33 Body mass index [BMI] 33.0-33.9, adult; Z71.3 Dietary counseling and surveillance; Z68.32 Body mass index [BMI] 32.0-32.9, adult; J45.909 Unspecified asthma, uncomplicated; G89.29 Other chronic pain; K21.9 Gastro-esophageal reflux disease without esophagitis; E80.6 Other disorders of bilirubin metabolism
CPT/HCPCS: 36415; 71045; 74300; 74330; 76001; 76705; 80048; 80053; 80305; 81001; 83036; 83690; 83735; 84100; 84443; 85025; 85610; 85730; 86886; 86900; 86901; 87081; 93005; 96374; 99285; C1769; C1773; C1887; J0330; J0696; J1170; J1885; J2001; J2250; J2270; J2370; J2405; J2704; J3010; J3490; J7030; J7060; J7070; Q0092; Q0162